=== PATIENT | female | born 1995 | race Two or more races ===

== ENCOUNTER 2024-08-28 18:28 | Outpatient (CLI) | payer OTHER ==
[2024-08-28 18:37] VITALS: BP 100/66
[2024-08-28] MEDS ORDERED: PRENATAL + DHA1 EAC1 PO (21:22)
== END 2024-08-28 21:21 | disposition left against medical advice (07) ==
LOC: OBS/DEL 18:28
PROVIDERS: ATTEND Obstetrics & Gynecology
DX: O26.893 Other specified pregnancy related conditions, third trimester (principal); Z3A.29 29 weeks gestation of pregnancy

== ENCOUNTER 2024-11-09 19:36 | Outpatient (CLI) | payer OTHER ==
[~2024-11-09] VITALS: Ht 162.6 cm; Wt 75.7 kg
[2024-11-09 18:42] VITALS: BP 128/89
[~2024-11-09 19:36] MED LIST: PRENATAL + DHA1 EAC1 PO
[2024-11-09] MEDS ORDERED: RINGERS SOLUTION,LACTATED 1,000 ML IV SCH (20:00)
[2024-11-09] MEDS ORDERED: ADULT LOW DOSE81 M1 PO (20:33)
[2024-11-09] MEDS ORDERED: AMOX1TAB5 PO (20:37)
[2024-11-09 21:54] LABS: URINE APPEARANCE Clear; URINE BILIRRUBIN Negative (NEGATIVE); URINE BLOOD Negative; URINE COLOR Yellow; URINE GLUCOSE Negative (NEGATIVE); URINE KETONE Negative (NEGATIVE); URINE LEUKOCYTE Moderate; URINE NITRATE Negative; URINE PROTEIN Negative (NEGATIVE); URINE UROBILINOGEN 0.2 E.U./dl
[2024-11-09 21:57] LABS: URINE BACTERIA 326.7 uL (0.0-1933); URINE EPITHELIAL CELLS 31.3 uL (0.0-38.8); URINE RBC 2.9 uL (0.0-20.8); URINE WBC 23.4 uL (0.0-23.2)
[2024-11-09 22:03] LABS: URINE CAST 0.58 uL (0.0-1.40)
[2024-11-09 23:30] VITALS: BP 125/83
== END 2024-11-10 01:30 | disposition left against medical advice (07) ==
LOC: OBS/DEL 19:36 → LDR 19:36 → OBS/DEL 11-10 01:30 → LDR 11-10 01:30 → EDSTATUS 11-15 10:53
PROVIDERS: ATTEND Obstetrics & Gynecology
DX: O26.893 Other specified pregnancy related conditions, third trimester (principal); Z3A.40 40 weeks gestation of pregnancy

== ENCOUNTER 2024-11-10 15:43 | Inpatient (IN) | payer OTHER ==
[~2024-11-10] VITALS: Ht 160 cm; Wt 3.2 kg
[2024-11-10 15:14] VITALS: BP 121/85
[2024-11-10 15:15] VITALS: BP 121/85
[~2024-11-10 15:43] MED LIST changes: +ADULT LOW DOSE81 M1 PO; +AMOX1TAB5 PO
[2024-11-10] MEDS ORDERED: RINGERS SOLUTION,LACTATED 1,000 ML IV SCH (16:45)
[2024-11-10 17:12] LABS: URINE APPEARANCE Cloudy; URINE BILIRRUBIN Negative (NEGATIVE); URINE BLOOD Negative; URINE COLOR Yellow; URINE GLUCOSE Negative (NEGATIVE); URINE KETONE 15 (NEGATIVE); URINE LEUKOCYTE Moderate; URINE NITRATE Negative; URINE PROTEIN Negative (NEGATIVE); URINE UROBILINOGEN 0.2 E.U./dl
[2024-11-10 17:13] LABS: HEMATOCRIT 39.4 % (36.0-45.00); HEMOGLOBIN 13.3 g/dL (12.0-15.00); MEAN CELL VOLUME 86.2 fL (80.00-100.00); MEAN CORPUSCULAR HEMOGLOBIN 29.1 pg (27.00-32.0); MEAN CORPUSCULAR HGB CONC 33.7 g/dl (32.0-36.0); PLATELET COUNT 146 K/uL (150-450); RED BLOOD COUNT 4.56 M/uL (4.00-6.00); RED CELL DISTRIBUTION WIDTH 15.7 % (11.5-14.5)
[2024-11-10 17:16] LABS: URINE BACTERIA 1626.4 uL (0.0-1933); URINE CAST 4.71 uL (0.0-1.40); URINE WBC 81.2 uL (0.0-23.2)
[2024-11-10 17:32] LABS: INR 0.94; PARTIAL THROMBOPLASTIN TIME 27.6 SECONDS (22.0-34.0); PROTHROMBIN TIME 10.3 SECONDS (9.0-11.5)
[2024-11-10 17:42] LABS: ALBUMIN 2.6 gm/dL (3.4-5.0); BILIRUBIN TOTAL 0.51 mg/dL (0.3-1.2); CREATININE SERUM 0.48 mg/dL (0.55-1.02); GFR 152.9; GLOBULINA 4.4 G/DL (2.4-3.5); POTASSIUM 4.31 mEq/L (3.5-5.1)
[2024-11-10 19:54] VITALS: BP 92/62
[2024-11-10 23:53] VITALS: BP 107/73
[2024-11-11 04:25] VITALS: BP 119/72
[2024-11-11 06:18] VITALS: BP 97/68; O2SAT 98
[2024-11-11] MEDS ORDERED: CEFOXITIN SODIUM 2,000 MG VIAL IV SCH (09:45)
[2024-11-11 11:32] VITALS: BP 106/68; O2SAT 100
[2024-11-11] MEDS ORDERED: OXYTOCIN 10 UNITS/ML VIAL ONE ×2 (13:15→18:47)
[2024-11-11] MEDS ORDERED: ERYTHROMYCIN BASE OPHT 1GM EACH TUBE OP ONE ×2 (13:15→14:30)
[2024-11-11] MEDS ORDERED: RINGERS SOLUTION,LACTATED 1,000 ML IV SCH (14:30)
[2024-11-11] MEDS ORDERED: CHLORHEXIDINE GLUCONATE 120 ML BOTTLE TOP NR (14:30)
[2024-11-11] MEDS ORDERED: OXYTOCIN 1,000 ML IV SCH (14:30)
[2024-11-11] MEDS ORDERED: MORPHINE SULFATE 4 MG/ML CARTRIDGE IV PRN (14:30)
[2024-11-11] MEDS ORDERED: ONDANSETRON HCL 2 MG/ML VIAL IV PRN ×2 (14:30→20:45)
[2024-11-11] MEDS ORDERED: MORPHINE SULFATE 4 MG/ML VIAL IV ONE ×2 (15:40→16:10)
[2024-11-11] MEDS ORDERED: PROMETHAZINE HCL 50 MG/ML AMPUL IM ONE (17:58)
[2024-11-11] MEDS ORDERED: MEPERIDINE HCL/PF 50 MG/ML VIAL IV SCH (18:00)
[2024-11-11] MEDS ORDERED: PROMETHAZINE HCL 25 MG/ML AMPUL IV SCH (18:00)
[2024-11-11] MEDS ORDERED: INSULIN LISPRO 1,000 UNIT/10 ML UNITS SUBCUTANEO PRN (19:15)
[2024-11-11] MEDS ORDERED: DEXTROSE 50 % IN WATER 0.5 G/ML DISP.SYRIN IV PRN (19:15)
[2024-11-11 19:18] VITALS: BP 111/83
[2024-11-11] MEDS ORDERED: MORPHINE SULFATE 4 MG/ML VIAL IV PRN (20:45)
[2024-11-11] MEDS ORDERED: SIMETHICONE 125 MG CAPSULE PO SCH (21:00)
[2024-11-12 02:37] VITALS: BP 121/78
[2024-11-12 06:30] VITALS: BP 114/77
[2024-11-12 08:15] VITALS: BP 130/86
[2024-11-12] MEDS ORDERED: NAPROXEN 500 MG TABLET PO SCH (09:05)
[2024-11-12] MEDS ORDERED: ACETAMINOPHEN WITH CODEINE 1 UDTAB TABLET PO PRN (09:15)
[2024-11-12 12:06] LABS: RH POSITIVE
[2024-11-12 16:00] VITALS: BP 131/77
[2024-11-13 00:19] VITALS: BP 135/86
[2024-11-13 07:38] VITALS: BP 117/78
[2024-11-13 17:00] VITALS: BP 104/67
[2024-11-14 00:22] VITALS: BP 112/78
[2024-11-14 08:31] VITALS: BP 115/77
[2024-11-14] MEDS ORDERED: AMOX1TAB5 PO (10:21)
[2024-11-14] MEDS ORDERED: Tylenol #3 PO (10:21)
[2024-11-14] MEDS ORDERED: NAPR500T14 PO (10:21)
== END 2024-11-14 14:31 | disposition home or self-care (01) | DRG 788 ==
LOC: LDR 15:43 → OB/GYN 15:43 → O/R 15:43 → OB/GYN 11-11 17:22
PROVIDERS: ADMIT Obstetrics & Gynecology; ATTEND Obstetrics & Gynecology
PROC: 4A1HXCZ Monitoring of Products of Conception, Cardiac Rate, External Approach (ICD-10-PCS; 2024-11-10)
PROC: BY4FZZZ Ultrasonography of Third Trimester, Single Fetus (ICD-10-PCS; 2024-11-10)
PROC: 10D00Z1 Extraction of Products of Conception, Low, Open Approach (ICD-10-PCS; principal; 2024-11-11 14:00)
DX: O34.211 Maternal care for low transverse scar from previous cesarean delivery (principal); Z3A.40 40 weeks gestation of pregnancy; Z37.0 Single live birth